=== PATIENT | male | born 1995 | race Native Hawaiian/Other Pacific Islander ===

== ENCOUNTER 2021-06-29 16:46 | Emergency (ER) | payer SELFPAY ==
[2021-06-29 18:20] VITALS: BP 124/68
--- NOTE | 2021-06-29 18:25 | Emergency Department Report ---
- General Chief complaint: Extremity Problem,Nontraumatic Stated complaint: RT ARM PAINS Time Seen by Provider: 06/29/21 18:19 Source: patient Mode of arrival: Ambulatory Limitations: No Limitations - History of Present Illness Initial comments: The patient was evaluated in the emergency department for symptoms described in the history of present illness. He/she was evaluated in the context of the global COVID-19 pandemic, which necessitated consideration that the patient might be at risk for infection with the virus that causes COVID-19. Institutional protocols and algorithms that pertain to the evaluation of patients at risk for COVID-19 are in a state of rapid change based on information released by regulatory bodies including the CDC and federal and state organizations. These policies and algorithms were followed during the patient's care in the emergency department. Please note that these policies, procedures and recommendations changed on a rapid basis. 26-year-old male presents to the emergency room complaining of right arm swelling after having these pimple-like lesions on his right arm. Patient complains that it is painful. Denies any fever, chills no nausea no vomiting. Patient denies any injury no fall no trauma. MD complaint: rash Onset/Timin -: days(s) Tetanus Up to Date: yes Location: RUE Severity scale (0 -10): 6 Quality: aching Consistency: constant Improves with: none Worsens with: none Associated symptoms: denies other symptoms Treatments Prior to Arrival: none - Related Data Previous Rx's Medication Instructions Recorded Last Taken Type Ibuprofen [Motrin 800 MG tab] 800 mg PO Q8HR PRN #15 tablet 06/29/21 Unknown Rx cephALEXin [Keflex] 500 mg PO Q8HR 10 Days #30 cap 06/29/21 Unknown Rx Allergies Allergy/AdvReac Type Severity Reaction Status Date / Time No Known Allergies Allergy Unverified 06/29/21 18:17 Abscess Boil HPI - HPI Chief Complaint: Extremity Problem,Nontraumatic Stated Complaint: RT ARM PAINS Time Seen by Provider: 06/29/21 18:19 Home Medications: Previous Rx's Medication Instructions Recorded Last Taken Type Ibuprofen [Motrin 800 MG tab] 800 mg PO Q8HR PRN #15 tablet 06/29/21 Unknown Rx cephALEXin [Keflex] 500 mg PO Q8HR 10 Days #30 cap 06/29/21 Unknown Rx Allergies/Adverse Reactions: Allergies Allergy/AdvReac Type Severity Reaction Status Date / Time No Known Allergies Allergy Unverified 06/29/21 18:17 ED Review of Systems ROS: Stated complaint: RT ARM PAINS Other details as noted in HPI Comment: All other systems reviewed and negative ED Past Medical Hx - Past Medical History Previous Medical History?: No - Surgical History Past Surgical History?: No - Medications Home Medications: Home Medications Medication Instructions Recorded Confirmed Last Taken Type Ibuprofen [Motrin 800 MG tab] 800 mg PO Q8HR PRN #15 tablet 06/29/21 Unknown Rx cephALEXin [Keflex] 500 mg PO Q8HR 10 Days #30 cap 06/29/21 Unknown Rx ED Physical Exam - General Limitations: No Limitations General appearance: alert, in no apparent distress - Head Head exam: Present: atraumatic, normocephalic - Eye Eye exam: Present: normal appearance - ENT ENT exam: Present: mucous membranes moist, normal external ear exam - Neck Neck exam: Present: normal inspection, full ROM - Respiratory Respiratory exam: Absent: respiratory distress, accessory muscle use - Cardiovascular Cardiovascular Exam: Present: tachycardia - Expanded Upper Extremity Exam Right Shoulder Exam: Present: normal inspection Upper Arm exam: Present: tenderness Elbow exam: Present: full ROM, tenderness, swelling, erythema Forearm Wrist exam: Present: full ROM, tenderness, swelling, erythema Hand Wrist exam: Present: normal inspection - Back Exam Back exam: Present: normal inspection - Neurological Exam Neurological exam: Present: alert, oriented X3, normal gait - Psychiatric Psychiatric exam: Present: normal affect, normal mood - Skin Skin exam: Present: erythema (right arm) ED Course Vital Signs 06/29/21 18:17 Temperature 99.7 F H Pulse Rate 80 Respiratory 18 Rate Blood Pressure 124/68 O2 Sat by Pulse 99 Oximetry ED Medical Decision Making - Medical Decision Making 26-year-old male presents to the emergency room complaining of right ar m swelling after having these pimple-like lesions on his right arm. Patient complains that it is painful. Denies any fever, chills no nausea no vomiting. Patient denies any injury no fall no trauma. Patient can be treated for cellulitis of the right arm. Instructed to complete antibiotics take pain medication follow-up with primary care provider if symptoms persist or gets worse. Critical care attestation.: If time is entered above; I have spent that time in minutes in the direct care of this critically ill patient, excluding procedure time. ED Disposition Clinical Impression: Right arm cellulitis Disposition: 01 HOME / SELF CARE / HOMELESS Is pt being admited?: No Does the pt Need Aspirin: No Condition: Stable Instructions: Cellulitis, Adult, [id number] Additional Instructions: Complete antibiotics as prescribed pain medication as needed follow-up with your primary care provider if symptoms persist or gets worse. Prescriptions: cephALEXin [Keflex] 500 mg PO Q8HR 10 Days #30 cap Ibuprofen [Motrin 800 MG tab] 800 mg PO Q8HR PRN #15 tablet PRN Reason: Pain , Severe (7-10) Referrals: [facility] [Provider Group] - 3-5 Days Forms: Work/School Release Form(ED) Time of Disposition: 18:22
[2021-06-29] MEDS ORDERED: KETOROLAC 30 MG/1 ML INJ IV ONE (18:41)
== END 2021-06-29 18:57 | disposition home or self-care (01) ==
LOC: ED 16:46
DX: L03.113 Cellulitis of right upper limb (principal); Z79.899 Other long term (current) drug therapy
CPT/HCPCS: 96374; 99282; J1885